=== PATIENT | female | born 2000 | race Hispanic/Latino ===

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

== ENCOUNTER 2019-09-19 03:55 | Inpatient (IN) | payer OTHER, MEDICAID ==
[~2019-09-19] VITALS: Ht 162.6 cm; Wt 77.1 kg
[2019-09-19] MEDS ORDERED: LACTATED RINGERS 1000ML 1,000 ML IV PRN (04:09)
[2019-09-19] MEDS ORDERED: LACTATED RINGERS 1000ML 1,000 ML IV ONE (04:16)
[2019-09-19 04:35] LABS: APPEARANCE,URINE Clear (CLEAR); BILIRUBIN,URINE Negative (NEGATIVE); COLOR,URINE Yellow (YELLOW); GLUCOSE, URINE (UA) Negative (NEGATIVE); KETONES,URINE Negative (NEGATIVE); LEUKOCYTE ESTERASE ,URINE Moderate (NEGATIVE); NITRATE,URINE Negative (NEGATIVE); OCCULT BLOOD,URINE Negative (NEGATIVE); PH,URINE 5.5 (5.0-8.0); PROTEIN,URINE Negative (NEGATIVE)
[2019-09-19 04:42] LABS: AMPHET/METH SCREEN,URINE NEGATIVE (NEGATIVE); BARBITURATE SCREEN, URINE NEGATIVE (NEGATIVE); BENZODIAZEPINES SCREEN,URINE NEGATIVE (NEGATIVE); CANNABINOID SCREEN,URINE NEGATIVE (NEGATIVE); COCAINE SCREEN,URINE NEGATIVE (NEGATIVE); OPIATE SCREEN,URINE NEGATIVE (NEGATIVE); PHENCYCLIDINE SCREEN,URINE NEGATIVE (NEGATIVE)
[2019-09-19 04:48] LABS: HEMATOCRIT 40.1 % (36-48); MEAN CORPUSCULAR HGB CONC 33.2 g/dL (32.0-36.0); MEAN CORPUSCULAR VOLUME 87.6 fL (80-100); RED BLOOD CELL COUNT(AUTO) 4.58 MIL/uL (4.00-5.50); RED CELL DISTRIBUTION WIDTH 13.7 % (11.0-15.5); WHITE BLOOD COUNT (AUTO) 12.6 K/uL (4.8-10.8)
[2019-09-19 04:59] LABS: BACTERIA,URINE Few /HPF (None Seen); MUCUS,URINE Few LPF (None Seen); RBC,URINE 0-1 /HPF (0-1)
[2019-09-19] MEDS ORDERED: MEPERIDINE-PF 50 MG/ML SYG IVP ONE (05:15)
[2019-09-19] MEDS: PROMETHAZINE HCL 25 MG/ML 1ML AMPULE IM SCH (06:07)
[2019-09-19] MEDS ORDERED: TERBUTALINE SULFATE VIAL 1MG/ML SQ SCH (06:40)
[2019-09-19] MEDS ORDERED: TERBUTALINE SULFATE VIAL 1MG/ML SQ ONE (06:41)
[2019-09-19] MEDS ORDERED: OXYTOCIN-LR 20 UNITS/1000 ML 2,000 ML IV ONE (07:14)
[2019-09-19] MEDS ORDERED: LIDOCAINE HCL 1% 20 ML VIAL ONE (07:14)
[2019-09-19] MEDS ORDERED: MISOPROSTOL 200 MCG TABLET ONE (07:29)
[2019-09-19] MEDS ORDERED: METHYLERGONOVINE MALEATE 0.2 MG/1 ML ML ONE (07:29)
[2019-09-19] MEDS ORDERED: WITCH HAZEL 1 PAD TP PRN (09:00)
[2019-09-19] MEDS ORDERED: BENZOCAINE/LANOLIN/ALOE VERA 60 ML AEROSOL TP PRN (09:00)
[2019-09-19] MEDS ORDERED: IBUPROFEN 600 MG TABLET PO PRN (09:00)
[2019-09-19] MEDS ORDERED: ACETAMINOPHEN-CODEINE 300/30MG TAB PO PRN (09:00)
[2019-09-19] MEDS ORDERED: ACETAMINOPHEN 325 MG TAB PO PRN (09:00)
[2019-09-19] MEDS ORDERED: LANOLIN 30GM OINTMENT TP PRN (09:00)
[2019-09-19] MEDS ORDERED: DIPH,PERTUSS(ACELL),TET VAC/PF 0.5 ML VIAL IM PRN (09:00)
[2019-09-19] MEDS ORDERED: MEASLES/MUMPS/RUBELLA VACCINE, LIVE 0.5 ML/VIAL SQ PRN (09:00)
[2019-09-19] MEDS ORDERED: OXYTOCIN-LR 20 UNITS/1000 ML 1,000 ML IV SCH (10:15)
[2019-09-19 10:28] LABS: RAPID PLASMA REAGIN NONREACTIVE (NONREACTIVE)
[2019-09-19] MEDS ORDERED: PREN-154 PO (15:12)
[2019-09-19 15:18] VITALS: BP 138/71
[2019-09-19 19:30] VITALS: BP 126/77
[2019-09-19] MEDS: DOCUSATE SODIUM 100 MG CAP PO SCH ×2 (20:50→20:52)
[2019-09-19 23:28] VITALS: BP 119/73
[2019-09-19 23:29] VITALS: BP 123/59
[2019-09-20 02:43] VITALS: BP 121/65
[2019-09-20] MEDS: PROMETHAZINE HCL 25 MG/ML 1ML AMPULE IM SCH ×2 (05:15→05:45)
[2019-09-20 07:41] VITALS: BP 126/75
[2019-09-20] MEDS: DOCUSATE SODIUM 100 MG CAP PO SCH (09:15)
[2019-09-20 10:12] LABS: HEPATITIS Bs ANTIGEN SCREEN P Negative (Negative)
[2019-09-20 11:40] VITALS: BP 121/83
--- NOTE | 2019-09-20 12:00 | NUR ---
Pt is discharged, verbal and written discharge instructions given, refer to exit care. informed of the follow up appointment, prescription given. informed to call the doctor for future concerns. Pt voiced understanding to all things discussed. Pt is waiting for baby's discharge. Addendum: 09/20/19 at 1316 by TREVOR RODRIGUEZ RN Amended: Links added.
[2019-09-20 16:05] VITALS: BP 133/69
--- NOTE | 2019-09-20 17:05 | NUR ---
Pt is dismissed in stable condition, brought to private car via wheelchair. Addendum: 09/20/19 at 1709 by TREVOR RODRIGUEZ RN Amended: Links added.
== END 2019-09-20 17:05 | disposition home or self-care (01) | DRG 807 ==
LOC: EDH 03:55 → OBSVTOIN 03:56 → LDH 03:56 → WSH 13:45
PROVIDERS: ADMIT Obstetrics & Gynecology; ATTEND Obstetrics & Gynecology
PROC: 10E0XZZ Delivery of Products of Conception, External Approach (ICD-10-PCS; principal; 2019-09-19)
PROC: 0HQ9XZZ Repair Perineum Skin, External Approach (ICD-10-PCS; 2019-09-19)
PROC: 3E0234Z Introduction of Serum, Toxoid and Vaccine into Muscle, Percutaneous Approach (ICD-10-PCS; 2019-09-19)
DX: O70.0 First degree perineal laceration during delivery (principal); Z37.0 Single live birth; Z3A.39 39 weeks gestation of pregnancy; Z23 Encounter for immunization
CPT/HCPCS: 36415; 80305; 81001; 85027; 86592; 86701; 86850; 86900; 86901; 87088; 87340; 87390; 90715; 96372; A4314; A4606; G0378; J2175; J2210; J2550; J2590; J3105; J7120; U0003

== ENCOUNTER 2022-05-08 12:33 | Observation (INO) | payer BC, MEDICAID ==
[~2022-05-08 12:33] MED LIST: PREN-154 PO
== END 2022-05-08 13:25 | disposition home or self-care (01) ==
LOC: LDH 12:33
PROVIDERS: ADMIT Obstetrics & Gynecology; ATTEND Obstetrics & Gynecology
DX: O42.913 Preterm premature rupture of membranes, unspecified as to length of time between rupture and onset of labor, third trimester (principal); Z3A.36 36 weeks gestation of pregnancy
CPT/HCPCS: G0379; G0378

== ENCOUNTER 2022-05-10 09:52 | Observation (INO) | payer BC, MEDICAID ==
[~2022-05-10] VITALS: Ht 162.6 cm; Wt 78.0 kg
[2022-05-10 09:54] VITALS: BP 148/72
[2022-05-10] MEDS ORDERED: DIPHENHYDRAMINE HCL 25 MG CAPSULE ONE (11:56)
[2022-05-10] MEDS ORDERED: DIPHENHYDRAMINE HCL 25 MG CAPSULE PO ONE (12:00)
[2022-05-10 12:08] LABS: BASOPHILS % (AUTO) 0.2 % (0.0-5.0); EOSINOPHILS % (AUTO) 0.4 % (0.0-8.0); HEMATOCRIT 35.6 % (36-48); LYMPHOCYTES % (AUTO) 19.9 % (21.0-51.0); MEAN CORPUSCULAR HEMOGLOBIN 28.1 pg (27.0-33.0); MEAN CORPUSCULAR VOLUME 87.9 fL (79-99); MONOCYTES % (AUTO) 5.8 % (3.0-13.0); NEUTROPHILS % (AUTO) 72.7 % (40.0-77.0); PLATELET COUNT (AUTO) 234 K/uL (130-400); RED BLOOD CELL COUNT(AUTO) 4.05 MIL/uL (4.00-5.50); WHITE BLOOD COUNT (AUTO) 8.1 K/uL (4.8-10.8)
[2022-05-10 12:19] LABS: CREATININE 0.6 mg/dL (0.5-1.5); POTASSIUM 3.5 mmol/L (3.5-5.1)
[2022-05-10 12:20] LABS: INR 0.93 (0.85-1.15); PROTHROMBIN TIME 9.4 SEC (9.6-11.6)
[2022-05-10 12:21] LABS: ALBUMIN 2.7 g/dL (3.5-5.0); PARTIAL THROMBOPLASTIN TIME 24.2 SEC (26.3-35.5); TOTAL PROTEIN, SERUM 6.6 g/dL (6.0-8.3); URIC ACID 3.8 mg/dL (2.6-7.2)
[2022-05-10 12:43] LABS: APPEARANCE,URINE CLOUDY (CLEAR); BILIRUBIN,URINE NEGATIVE (NEGATIVE); COLOR,URINE YELLOW (YELLOW); GLUCOSE, URINE (UA) NEGATIVE (NEGATIVE); KETONES,URINE NEGATIVE (NEGATIVE); LEUKOCYTE ESTERASE ,URINE 75 Leu/uL (NEGATIVE); NITRATE,URINE NEGATIVE (NEGATIVE); OCCULT BLOOD,URINE NEGATIVE (NEGATIVE); PROTEIN,URINE 30 mg/dL (NEGATIVE); UROBILINOGEN,URINE 0.2 mg/dL (0.2-1.0)
[2022-05-10 12:50] LABS: BACTERIA,URINE RARE /HPF (None Seen); MUCUS,URINE MANY LPF (None Seen); SQUAMOUS EPITHELIAL CELL,UR MANY /HPF (0-2)
== END 2022-05-10 13:20 | disposition home or self-care (01) ==
LOC: EDH 09:52 → LDH 09:53
PROVIDERS: ADMIT Obstetrics & Gynecology; ATTEND Obstetrics & Gynecology
DX: O26.893 Other specified pregnancy related conditions, third trimester (principal); L29.9 Pruritus, unspecified; Z3A.36 36 weeks gestation of pregnancy
CPT/HCPCS: 59025; 84550; 80053; 85025; 85384; 85610; 85730; 87088; 81001; 36415; 76819; G0378 ×2; Q0163

== ENCOUNTER 2023-09-24 17:11 | Emergency (ER) | payer BC, MEDICAID ==
[~2023-09-24] VITALS: Ht 162.6 cm; Wt 73.9 kg
[~2023-09-24 17:11] MED LIST changes: -PREN-154 PO; +PREN-226 PO
[2023-09-24] MEDS: ONDANSETRON ODT 4MG TAB SL STA (17:58)
[2023-09-24] MEDS: KETOROLAC 15MG/ML VIAL (15MG/ML) IM STA (17:58)
[2023-09-24] MEDS: HYDROCODONE/ACETAMINOPHEN 5/325 MG TAB PO STA (17:58)
[2023-09-24 18:07] LABS: APPEARANCE,URINE CLOUDY (CLEAR); BILIRUBIN,URINE NEGATIVE (NEGATIVE); COLOR,URINE YELLOW (YELLOW); GLUCOSE, URINE (UA) NEGATIVE (NEGATIVE); KETONES,URINE >=80 mg/dL (NEGATIVE); LEUKOCYTE ESTERASE ,URINE 500 Leu/uL (NEGATIVE); NITRATE,URINE NEGATIVE (NEGATIVE); PH,URINE 5.5 (5.0-8.0); PROTEIN,URINE 20 mg/dL (NEGATIVE); UROBILINOGEN,URINE 0.2 mg/dL (0.2-1.0)
[2023-09-24 18:09] LABS: ADD UA MICROSCOPIC YES
[2023-09-24 18:11] LABS: HCG,QUALITATIVE URINE NEGATIVE (NEGATIVE)
[2023-09-24 18:21] LABS: BACTERIA,URINE RARE /HPF (None Seen); MUCUS,URINE FEW LPF (None Seen); SQUAMOUS EPITHELIAL CELL,UR MANY /HPF (0-2)
[2023-09-24] MEDS: CEFTRIAXONE 1G VIAL IVPB STA (19:03)
[2023-09-24] MEDS ORDERED: ONDA-243 PO (19:08)
[2023-09-24] MEDS ORDERED: CEPH500B PO (19:08)
[2023-09-24] MEDS ORDERED: KETO10TA2 PO (19:08)
[2023-09-24] MEDS ORDERED: FLUC150T48 PO (19:08)
[2023-09-24 19:19] VITALS: BP 114/72; PULSE 80; RESP 18; O2SAT 98
== END 2023-09-24 19:31 | disposition home or self-care (01) ==
LOC: EDH 17:11
DX: N39.0 Urinary tract infection, site not specified (principal); K08.89 Other specified disorders of teeth and supporting structures; Z79.899 Other long term (current) drug therapy; Z98.890 Other specified postprocedural states
CPT/HCPCS: 99284; 96374; 87086; 81001; 81025; 96372; J0696; J1885